=== PATIENT | male | born 1965 | race Caucasian/White ===

== ENCOUNTER 2020-07-04 13:12 | Inpatient (IN) | payer OTHER ==
[2020-07-04 14:50] LABS: BASO % 0.2 % (0-2.0); EOS % 0.3 % (0-4.5); HEMATOCRIT 41.9 % (35.4-49); LYMPH % 13.3 % (8-40); MCH 31.6 pg (25.7-33.7); MCHC 33.5 g/dl (32.0-35.9); MEAN CELL VOLUME 94.5 fl (80-96); MEAN PLT VOLUME 8.5 fl (7.5-11.1); MONO % 6.8 % (3.8-10.2); NEUT % 79.4 % (42.8-82.8); PLATELET COUNT 248 K/MM3 (134-434); RBC 4.43 M/mm3 (4.00-5.60); RDW 12.3 % (11.9-15.9); WHITE BLOOD COUNT 7.7 K/mm3 (4.0-10.0)
[2020-07-04 14:56] LABS: INR 1.1 (0.83-1.09); PROTHROMBIN TIME (PATIENT) 13.3 SEC (9.7-13.0)
[2020-07-04 14:59] LABS: ACTIVATED PTT 29.1 SECONDS (25.2-36.5)
[2020-07-04 15:03] LABS: CHLORIDE 102 mmol/L (98-107); POTASSIUM 4.3 mmol/L (3.5-5.1); SODIUM 140 mmol/L (136-145)
[2020-07-04 15:05] LABS: ALBUMIN 3.8 g/dl (3.4-5.0); ANION GAP 8 MMOL/L (8-16); BLOOD UREA NITROGEN 21.8 mg/dL (7-18); CALCIUM 8.8 mg/dL (8.5-10.1); CO2 31 mmol/L (21-32)
[2020-07-04 15:06] LABS: GLUCOSE,RANDOM 147 mg/dL (74-106)
[2020-07-04 15:08] LABS: SGPT/ALT 80 U/L (13-61)
[2020-07-04 15:09] LABS: CREATININE 1.2 mg/dL (0.55-1.3); LDH 280 U/L (87-246); SGOT/AST 58 U/L (15-37)
[2020-07-04 15:10] LABS: BILIRUBIN,TOTAL 0.6 mg/dL (0.2-1)
[2020-07-04 15:11] LABS: ALK PHOS 91 U/L (45-117)
[2020-07-04 15:12] LABS: TOT PROT 7.6 g/dl (6.4-8.2)
[2020-07-04] MEDS ORDERED: BAMLANIVIMAB 700 MG in SODIUM CHLORIDE 180 ML IVPB ONE (17:42)
[2020-07-04] MEDS ORDERED: ACETAMINOPHEN 325 MG TABLET (FP) PO PRN (18:50)
[2020-07-04] MEDS ORDERED: ALBUTEROL SO4 HFA INHALER IH PRN (20:00)
[2020-07-04] MEDS ORDERED: HEPARIN NA (PORCINE) 5,000 UNITS/ML 1ML VIAL SQ SCH (22:00)
[2020-07-04] MEDS: ENOXAPARIN NA (PORCINE) 40 MG/0.4 ML DISP.SYRIN SQ SCH (22:27)
[2020-07-04] MEDS: ASCORBIC ACID 500 MG TABLET (FP) PO SCH (22:27)
[2020-07-04] MEDS: ZINC SULFATE 220 MG CAPSULE (FP) PO SCH (22:27)
[2020-07-05 07:22] VITALS: BMI 32.2
[2020-07-05 09:17] LABS: BASO % 0.4 % (0-2.0); EOS % 1.3 % (0-4.5); HEMATOCRIT 38.6 % (35.4-49); MCH 31.7 pg (25.7-33.7); MCHC 33.8 g/dl (32.0-35.9); MEAN CELL VOLUME 93.7 fl (80-96); MEAN PLT VOLUME 8.6 fl (7.5-11.1); MONO % 10.8 % (3.8-10.2); NEUT % 45.5 % (42.8-82.8); PLATELET COUNT 248 K/MM3 (134-434); RBC 4.12 M/mm3 (4.00-5.60); RDW 12.2 % (11.9-15.9); WHITE BLOOD COUNT 5.7 K/mm3 (4.0-10.0)
[2020-07-05] MEDS: ASCORBIC ACID 500 MG TABLET (FP) PO SCH (09:22)
[2020-07-05] MEDS: ENOXAPARIN NA (PORCINE) 40 MG/0.4 ML DISP.SYRIN SQ SCH (09:22)
[2020-07-05] MEDS: ZINC SULFATE 220 MG CAPSULE (FP) PO SCH (09:23)
[2020-07-05 09:29] LABS: POTASSIUM 4.1 mmol/L (3.5-5.1)
[2020-07-05 09:31] LABS: CALCIUM 8.5 mg/dL (8.5-10.1)
[2020-07-05 09:32] LABS: ALBUMIN 3.4 g/dl (3.4-5.0); BLOOD UREA NITROGEN 23.5 mg/dL (7-18); MAGNESIUM 2.3 mg/dL (1.8-2.4)
[2020-07-05 09:35] LABS: PHOSPHOROUS 3.9 mg/dL (2.5-4.9)
[2020-07-05 09:36] LABS: BILIRUBIN,TOTAL 0.6 mg/dL (0.2-1); TOT PROT 7.2 g/dl (6.4-8.2)
[2020-07-05] MEDS ORDERED: LISINOPRIL 10 MG TABLET PO SCH (10:00)
[2020-07-05] MEDS ORDERED: HYDROCHLOROTHIAZIDE 12.5 MG CAPSULE (FP) PO SCH (10:00)
[2020-07-05 14:13] LABS: INR 1.05 (0.83-1.09); PROTHROMBIN TIME (PATIENT) 12.9 SEC (9.7-13.0)
[2020-07-05 14:16] LABS: ACTIVATED PTT 33.7 SECONDS (25.2-36.5)
[2020-07-05 15:33] VITALS: BP 111/63; PULSE 61; TEMP 98.3
== END 2020-07-05 15:59 | disposition home or self-care (01) | DRG 137 ==
LOC: JER 13:12 → JERBED 16:33 → OBSVTOIN 19:54 → J5S 21:30
PROVIDERS: ADMIT Internal Medicine; ATTEND Internal Medicine
PROC: 3E0330M Introduction of Antineoplastic, Monoclonal Antibody, into Peripheral Vein, Percutaneous Approach (ICD-10-PCS; principal; 2020-07-04)
DX: U07.1 COVID-19 (principal); I10 Essential (primary) hypertension; Z87.891 Personal history of nicotine dependence
CPT/HCPCS: 36415; 71045-TC-FY; 80053; 82728; 83615; 83735; 84100; 84484; 85025; 85379; 85610; 85730; 86140; 93005; 93010; 99285-25; C9803; G0378; Q0239; U0003